=== PATIENT | female | born 1990 ===

== ENCOUNTER 2018-09-04 19:13 | Emergency (ER) | payer OTHER ==
[2018-09-04 19:13] VITALS: BMI 28.2
[2018-09-04] MEDS ORDERED: Sodium Chloride 0.9% 1,000 ML IV STA (19:37)
[2018-09-04 20:13] LABS: VENOUS BLOOD GAS BASE EXCESS 1.5 mmol/L (0.0-2.0); VENOUS BLOOD GAS PCO2 39 mmHg (40-60); VENOUS BLOOD GAS PO2 26 mm/Hg (30-55); VENOUS BLOOD PH 7.43 (7.32-7.43)
--- NOTE | 2018-09-04 20:19 | ED PDOC ---
HPI: General Adult Time Seen by Provider: 09/04/18 19:29 Chief Complaint (Nursing): Fever Chief Complaint (Provider): Fever, Headache, Sore Throat History Per: Patient History/Exam Limitations: no limitations Onset/Duration Of Symptoms: Days (x2) Current Symptoms Are (Timing): Still Present Additional Complaint(s): 28 year old female at 13 weeks gestation presents to the ED for evaluation of an intermittent throbbing headache onset two days ago described as compression to both sides of her head which has been more persistent today associated with a fever of 102. Patient denies it being thunder-clap, worst ever, and sudden onset. Did not take any medications. She is additionally reporting throat pain with swallowing and chewing. Otherwise, denies vision changes, extremity weakness / numbness, vaginal bleeding / discharge, and urinary symptoms. PMD: [facility] Past Medical History Reviewed: Historical Data, Nursing Documentation, Vital Signs Vital Signs: Last Vital Signs Temp 100.3 F H 09/04/18 20:11 Pulse 90 09/04/18 19:23 Resp 16 09/04/18 19:23 BP 122/72 09/04/18 19:23 Pulse Ox 99 09/04/18 19:23 - Medical History PMH: No Chronic Diseases - Surgical History Surgical History: No Surg Hx - Family History Family History: States: Unknown Family Hx - Social History Current smoker - smoking cessation education provided: No Alcohol: None Drugs: Denies - Home Medications Home Medications: Ambulatory Orders Medication Instructions Recorded Cyclobenzaprine [Cyclobenzaprine 10 mg PO TID PRN #15 tab 06/10/18 HCl] Naproxen [Naprosyn] 500 mg PO BID PRN #14 tab 06/10/18 Acetaminophen [Pain Reliever] 500 mg PO Q4 #30 tablet 09/04/18 - Allergies Allergies/Adverse Reactions: Allergies Allergy/AdvReac Type Severity Reaction Status Date / Time No Known Allergies Allergy Verified 09/04/18 19:24 Review of Systems ROS Statement: Except As Marked, All Systems Reviewed And Found Negative Constitutional: Positive for: Fever (102) Eyes: Negative for: Vision Change ENT: Positive for: Throat Pain (painful to swallow and chew) Gastrointestinal: Negative for: Abdominal Pain Genitourinary Female: Negative for: Dysuria, Frequency, Incontinence, Vaginal Discharge, Vaginal Bleeding Neurological: Positive for: Headache (throbbing). Negative for: Numbness (or weakness in extremities) Physical Exam - Reviewed Nursing Documentation Reviewed: Yes Vital Signs Reviewed: Yes - Physical Exam Appears: Positive for: Well, No Acute Distress Head Exam: Positive for: ATRAUMATIC, NORMOCEPHALIC Skin: Positive for: Normal Color, Warm, Dry Eye Exam: Positive for: Normal appearance ENT: Positive for: Tonsillar Exudate (minimal to right tonsil). Negative for: Pharyngeal Erythema, Tonsillar Swelling Neck: Positive for: Normal (no meningismus), Painless ROM, Supple Cardiovascular/Chest: Positive for: Regular Rate, Rhythm Respiratory: Positive for: Normal Breath Sounds. Negative for: Respiratory Distress Gastrointestinal/Abdominal: Positive for: Normal Exam, Soft, Other (gravid uterus). Negative for: Tenderness, Guarding Back: Positive for: Normal Inspection Extremity: Positive for: Normal ROM (all extremities) Neurological/Psych: Positive for: Awake, Alert, Oriented (x3). Negative for: Motor/Sensory Deficits - Laboratory Results Result Diagrams: 09/04/18 20:05 09/04/18 20:05 Lab Results: pO2 26 mm/Hg (30-55) L 09/04/18 20:00 VBG pH 7.43 (7.32-7.43) 09/04/18 20:00 VBG pCO2 39 mmHg (40-60) L 09/04/18 20:00 VBG HCO3 24.8 mmol/L 09/04/18 20:00 VBG Total CO2 27.1 mmol/L (22-28) 09/04/18 20:00 VBG O2 Sat (Calc) 49.3 % (40-65) 09/04/18 20:00 VBG Base Excess 1.5 mmol/L (0.0-2.0) 09/04/18 20:00 VBG Potassium 4.1 mmol/L (3.6-5.2) 09/04/18 20:00 Sodium 130.0 mmol/L (132-148) L 09/04/18 20:00 Chloride 101.0 mmol/L (98-107) 09/04/18 20:00 Glucose 85 mg/dL (65-105) 09/04/18 20:00 Lactate 1.0 mmol/L (0.7-2.1) 09/04/18 20:00 FiO2 21.0 % 09/04/18 20:00 - ECG O2 Sat by Pulse Oximetry: 99 (RA) Pulse Ox Interpretation: Normal Medical Decision Making Medical Decision Making: A/P: 28 year old 13 week gestation female with fever and headache. --patient well appearing with no meningeal signs --symptoms likely related to viral illness, will check rapid strep, hydrate patient, and treat symptomatically Time: 1936 Initial Plan: --VBG --BMP --U-preg --U-dip --CBC with differential --Normal saline IV --Tylenol 650mg PO --Rapid strep --Urinalysis --Reevaluate 1030PM --Patient feeling much improved after tylenol, fluids, and reglan --Labwork reveals mild hyponatremia, likely corrected by fluids --Spoke with Dr. Ivey who agrees with management, advised patient to follow- up by the end of the week --Very well appearing upon discharge Scribe Attestation: Documented by Silvia Ivan, acting as a scribe for Jimmy Jackson MD. Provider Scribe Attestation: All medical record entries made by the Scribe were at my direction and personally dictated by me. I have reviewed the chart and agree that the record accurately reflects my personal performance of the history, physical exam, medical decision making, and the department course for this patient. I have also personally directed, reviewed, and agree with the discharge instructions and disposition. Disposition - Clinical Impression Clinical Impression: Pharyngitis - Patient ED Disposition Is Patient to be Admitted: No - Disposition Referrals: Aldo Ivey MD [Staff Provider] - Disposition: Routine/Home Disposition Time: 23:01 Condition: GOOD Prescriptions: Acetaminophen [Pain Reliever] 500 mg PO Q4 #30 tablet Instructions: Viral Pharyngitis Forms: [employer] ([place])
[2018-09-04 20:31] LABS: BASO % 0.2 % (0.0-2.0); EOS % 0.2 % (0.0-4.0); HEMOGLOBIN 11.5 g/dL (12.0-16.0); LYMPH # 1.4 K/uL (1.0-4.3); LYMPH % 11.2 % (20.0-40.0); MEAN CELL VOLUME 84.6 fl (81.0-99.0); MEAN CORPUSCULAR HEMOGLOBIN 28.2 pg (27.0-31.0); MEAN CORPUSCULAR HGB CONC 33.3 g/dL (33.0-37.0); MEAN PLATELET VOLUME 8.3 fl (7.2-11.7); MONO # 0.7 K/uL (0.0-0.8); MONO % 5.5 % (0.0-10.0); NEUT % 82.9 % (50.0-75.0); NRBC % 0.2 % (0.0-0.0); RBC 4.07 Mil/uL (3.80-5.20); RED CELL DISTRIBUTION WIDTH 14.5 % (11.5-14.5); WHITE BLOOD COUNT 12.1 K/uL (4.8-10.8)
[2018-09-04 20:32] LABS: BLOOD UREA NITROGEN 8 mg/dl (7-17); CALCIUM 9.5 mg/dL (8.4-10.2); GFR NON-AFRICAN AMERICAN > 60
[2018-09-04 20:33] LABS: SQUAMOUS EPITHIAL 6 /hpf (0-5); URINE BACTERIA OCC (<OCC); URINE BILIRUBIN NEGATIVE (NEGATIVE); URINE BLOOD NEGATIVE (NEGATIVE); URINE CLARITY CLOUDY (Clear); URINE COLOR YELLOW (YELLOW); URINE GLUCOSE (UA) NEG (NEGATIVE); URINE PROTEIN NEGATIVE (NEGATIVE); URINE UROBILINOGEN 0.2-1.0 mg/dL (0.2-1.0)
[2018-09-04 20:56] LABS: URINE LEUKOCYTE ESTERASE TRACE Leu/uL (Negative)
[2018-09-04 21:16] VITALS: BP 121/71; PULSE 83; RESP 18; TEMP 99.5
[2018-09-04 23:01] VITALS: O2SAT 99
== END 2018-09-04 23:36 | disposition home or self-care (01) ==
LOC: H.ER 19:13
DX: J02.9 Acute pharyngitis, unspecified (principal); O26.891 Other specified pregnancy related conditions, first trimester; Z3A.13 13 weeks gestation of pregnancy; E87.1 Hypo-osmolality and hyponatremia
CPT/HCPCS: 80048; 81003; 81025; 82803; 85025; 87070; 87430; 96360; 99283; J2765; J7030